=== PATIENT | male | born 1995 | race Caucasian/White ===

== ENCOUNTER 2016-07-07 23:20 | Emergency (ER) | payer OTHER ==
[~2016-07-07] VITALS: Ht 165.1 cm; Wt 52.5 kg
[2016-07-08 00:32] LABS: ADD MIUA? YES; BILIRUBIN NEGATIVE; BLOOD NEGATIVE; COLOR YELLOW ((YELLOW)); GLUCOSE (STRIP) NEGATIVE; KETONES NEGATIVE; LEUKOCYTES MODERATE; NITRITE NEGATIVE; PROTEIN (STRIP) NEGATIVE; SPECIFIC GRAVITY 1.024 (1.000-1.030)
[2016-07-08 00:37] LABS: HEMATOCRIT 44.7 % (38.0-50.0); MCH 29.7 PG (29.0-34.0); MCHC 35.6 G/DL (30.0-36.0); MCV 83.4 FL (86-99); MEAN PLAT.VOLUME 10.4 uM^3 (9.0-12.4); PLATELET COUNT 227 K/uL (156-360); RBC DIS.WIDTH-CV 12.3 % (11.8-14.6); RED BLOOD COUNT 5.36 M/uL (4.00-5.50); WHITE BLOOD COUNT 6.6 K/uL (4.1-10.2)
[2016-07-08 00:54] LABS: CHLORIDE 102 mEq/L (99-109); POTASSIUM 4.1 mEq/L (3.7-5.4); SODIUM 138 mEq/L (136-147)
[2016-07-08 00:56] LABS: GLUCOSE 100 mg/dL (70-99)
[2016-07-08 00:57] LABS: ANION GAP 13 MEQ/L (2-14)
[2016-07-08 00:58] LABS: TOTAL BILIRUBIN 0.9 mg/dL (0.0-1.0)
[2016-07-08 00:59] LABS: ALKALINE PHOSPHATASE 94 IU/L (3-129)
[2016-07-08 01:00] LABS: GFR ESTIMATE (CALCULATED) > 59 mL/min/
[2016-07-08 01:01] LABS: UREA NITROGEN (BUN) 13 mg/dL (9-23)
[2016-07-08 01:03] LABS: LIPASE 7 U/L (1.0-51.0)
[2016-07-08 01:27] LABS: RED BLOOD CELLS 0-5 /HPF (0-5); WHITE BLOOD CELLS 15-20 /HPF (0-5)
[2016-07-08 01:28] LABS: BACTERIA 1+; CASTS NONE SEEN /LPF; CRYSTALS NONE SEEN; EPITHELIAL CELLS RARE; MUCUS NONE SEEN; UCUL ADDED? NO
[2016-07-08] MEDS ORDERED: ZOFRAN ODT4 MG PO (01:42)
[2016-07-08] MEDS ORDERED: CIPRO500 MG PO (01:42)
[2016-07-08] MEDS ORDERED: PERCOCET 5/31 TABLET PO (01:42)
[2016-07-08 01:46] VITALS: BP 135/87
== END 2016-07-08 01:47 | disposition home or self-care (01) ==
LOC: EME 23:20
PROVIDERS: Physician Assistant
DX: N39.0 Urinary tract infection, site not specified (principal); K59.00 Constipation, unspecified
CPT/HCPCS: 74176; 80053; 81003; 83690; 85027; 99281; 99285; J2270; J2405; J7030